=== PATIENT | female | born 1975 | race Caucasian/White ===

== ENCOUNTER 2016-08-24 07:24 | Day surgery (SDC) | payer BC ==
--- NOTE | ~2016-08-24 | OP ---
Record Of Operation [facility] [address] [place]. [address] NAME: STUART STAFFORD : 73 STATUS : REG [facility] [place] PAT#: [id number] AGE: 40 ADM/REG DATE : 08/24/16 MR#: [id number] REPORT SERV DATE: 08/24/16 DICTATED BY: VERONA MCNALLY DATE: 08/24/16 REPORT STATUS : Draft TRANSCRIBED BY: MODL DATE: 08/24/16 DATE OF PROCEDURE: 08/24/2016 SERVICE: Otolaryngology. SURGEON: Verona Mcnally MD. PREOPERATIVE DIAGNOSIS: Large anterior nasal septal perforation. POSTOPERATIVE DIAGNOSIS: Large anterior nasal septal perforation. PROCEDURE: Insertion of septal button prosthesis. ANESTHESIA: Monitored anesthesia care. ESTIMATED BLOOD LOSS: Zero. COMPLICATIONS: None. SPECIMEN: None. FINDINGS: The patient had a large anterior septal defect, button was placed successfully. STATEMENT OF MEDICAL NECESSITY: This is a 40-year-old female with history of crusting, bleeding, and disordered breathing through her nose due to a large septal perforation. Appropriate workup was performed prior to placement of the button to rule out granulomatous disease and cancer. STATEMENT OF OPERATION: The patient was brought to the operating room in supine position, transferred to the operating room table after monitored anesthesia care was established. Using a prosthetic septal button, it was trimmed to fit the size of her perforation. It was inserted, both flanges overlapped well the perforation on both sides. All appropriate adjustments were made to make the button as comfortable as possible. This concluded the case. The patient was turned back over to Anesthesia, where she was awoken, was extubated, and transferred to the PACU in stable condition. PS/MODL Verona Mcnally MD / [id number] CC: Record Of Operation [place] [id number] [facility] [place]. [address] NAME: STUART STAFFORD : 73 STATUS : REG [facility] [place] PAT#: [id number] AGE: 40 ADM/REG DATE : 08/24/16 MR#: [id number] REPORT SERV DATE: 08/24/16 DICTATED BY: VERONA MCNALLY DATE: 08/24/16 REPORT STATUS : Draft TRANSCRIBED BY: PEPE DATE: 08/24/16 MD Yaniv Daly M.D.
[~2016-08-24 07:24] MED LIST: ALLEGRA D; BEN25; ZANTAC150 MG
[2016-08-24 07:59] LABS: BASOPHILS 0.5 %; BASOPHILS ABSOLUTE 0.05 10/3/uL (0.0-0.16); EOSINOPHILS 2.3 %; EOSINOPHILS ABSOLUTE 0.22 10/3/uL (0.0-0.53); HEMATOCRIT 39.1 % (36.0-48.0); HEMOGLOBIN 13.1 g/dL (12.0-16.0); IMMATURE GRANULOCYTES 0.3 %; IMMATURE GRANULOCYTES ABSOLUTE 0.03 10/3/uL (0.0-0.11); LYMPHOCYTES ABSOLUTE 3.03 10/3/uL (0.67-4.30); MEAN CORPUS HGB CONC 33.5 g/dL (32.0-36.0); MEAN CORPUSCULAR HEMOGLOB 30.6 pg (26.0-34.0); MEAN CORPUSCULAR VOLUME 91.4 fL (80-100); MEAN PLATELET VOLUME 9.8 fL (9.2-13.0); MONOCYTES 7.8 %; MONOCYTES ABSOLUTE 0.74 10/3/uL (0.21-1.20); NEUTROPHILS 57.1 %; NEUTROPHILS ABSOLUTE 5.39 10/3/uL (2.02-8.40); PLATELET COUNT 361 10/3/uL (150-400); RBC DISTRIBUTION WIDTH 13.8 % (12.0-16.0); RED CELL COUNT 4.28 10/6/uL (4.0-5.6); WHITE BLOOD CELLS 9.5 10/3/uL (4.5-10.5)
[2016-08-24 08:00] LABS: MANUAL DIFF NO %
[2016-08-24 08:10] LABS: BUN (BLOOD UREA NITROGEN) 10 MG/DL (6-23); CALCIUM, SERUM 8.7 MG/DL (8.5-10.4); CHLORIDE, SERUM 106 MMOL/L (96-112); CO2 (CARBON DIOXIDE) 22 MMOL/L (24-34); GFR AFRICAN AMERICAN 106 ML/MIN (>=60); GFR NON AFRICAN AMERICAN 92 ML/MIN (>=60); GLUCOSE, SERUM 105 MG/DL (60-99); SODIUM, SERUM 142 MMOL/L (135-148)
== END 2016-08-24 23:59 | disposition home or self-care (01) ==
LOC: MSC 07:24
PROVIDERS: Otolaryngology
PROC: 0WH Anatomical Regions, General, Insertion (ICD-10-PCS; principal; 2016-08-24 09:45)
DX: J34.89 Other specified disorders of nose and nasal sinuses (principal); K21.9 Gastro-esophageal reflux disease without esophagitis; E66.9 Obesity, unspecified; Z98.890 Other specified postprocedural states
CPT/HCPCS: 80048; 84703; 85025; 93005; A9270-GY; J2250; J3010